=== PATIENT | male | born 1985 | race Two or more races ===

== ENCOUNTER 2019-04-06 00:10 | Emergency (ER) | payer OTHER ==
[~2019-04-06] VITALS: Ht 167.6 cm; Wt 72.0 kg
[2019-04-06 00:16] VITALS: BP 146/83
--- NOTE | 2019-04-06 01:39 | NUR ---
TO ROOM 36
[2019-04-06] MEDS ORDERED: HYDROcodone/APAP 5/325 TABLET PO ONE (02:00)
[2019-04-06] MEDS ORDERED: CYCLOBENZAPRINE 10 MG TABLET PO ONE (02:00)
[2019-04-06] MEDS ORDERED: CYCLOBENZAPRINE 10 MG TABLET ONE (02:04)
[2019-04-06] MEDS ORDERED: HYDROcodone/APAP 5/325 TABLET ONE (02:05)
== END 2019-04-06 02:38 | disposition home or self-care (01) ==
LOC: ED 02:00
DX: S16.1XXA Strain of muscle, fascia and tendon at neck level, initial encounter (principal); G44.219 Episodic tension-type headache, not intractable; X58.XXXA Exposure to other specified factors, initial encounter; Y93.89 Activity, other specified; Y92.89 Other specified places as the place of occurrence of the external cause; Y99.8 Other external cause status
CPT/HCPCS: 99283